=== PATIENT | female | born 1990 | race Two or more races ===

== ENCOUNTER → 2017-11-21 15:13 | Outpatient (CLI) | payer OTHER | END | disposition home or self-care (01) | LOC: LAB 15:13 | DX: R22.0 Localized swelling, mass and lump, head (principal); Z51.81 Encounter for therapeutic drug level monitoring ==

== ENCOUNTER 2017-11-22 10:50 | Outpatient (CLI) | payer OTHER | END 2017-11-22 11:02 | disposition home or self-care (01) | LOC: MRI 10:50 | DX: G35 Multiple sclerosis (principal); R22.0 Localized swelling, mass and lump, head | CPT/HCPCS: 70553 ==